=== PATIENT | male | born 1960 | race Caucasian/White ===

== ENCOUNTER 2021-01-24 11:09 | Day surgery (SDC) | payer OTHER ==
[2012-05-29 21:14] VITALS: BP 142/80
[2021-01-24] MEDS ORDERED: LIDOCAINE HCL 2% 100 MG/5 ML IJ ONE (11:10)
[2021-01-24] MEDS ORDERED: Depo-Medrol 40 MG/ML IM ONE (11:10)
[2021-01-24] MEDS ORDERED: Lactated Ringers 1,000 ML IV ONE (12:29)
[2021-01-24] MEDS ORDERED: DIPRIVAN 200 MG/20 ML IV ONE (13:38)
--- NOTE | 2021-01-24 16:35 | XRAY ---
Indication: Bilateral L4-S1 MBB. Intraoperative fluoroscopy provided for 16 seconds. Single digital spot image submitted for interpretation demonstrates posterior needle tips projecting over the expected left and right L4-S1 nerve roots. Correlate with intraoperative findings/report.
--- NOTE | 2021-01-24 16:42 | XRAY ---
16 seconds of fluoroscopy was used in surgery for a bilateral L4-S1 MBB.
== END 2021-01-24 14:25 | disposition home or self-care (01) ==
LOC: SDC-PAIN 11:09
PROVIDERS: ATTEND Psychiatry & Neurology Pain Medicine
DX: M47.816 Spondylosis without myelopathy or radiculopathy, lumbar region (principal); Z79.899 Other long term (current) drug therapy
CPT/HCPCS: 64493; 64494; 72020; 77002; J1030; J2704

== ENCOUNTER 2021-06-06 09:37 | Day surgery (SDC) | payer OTHER ==
[2012-05-29 21:14] VITALS: BP 142/80
[2021-06-06] MEDS ORDERED: Depo-Medrol 40 MG/ML IM ONE (09:38)
[2021-06-06] MEDS ORDERED: BUPIVACAINE 0.5% VIAL IJ ONE (09:38)
[2021-06-06] MEDS ORDERED: DIPRIVAN 200 MG/20 ML IV ONE (12:09)
[2021-06-06] MEDS ORDERED: Lactated Ringers 1,000 ML IV ONE (13:36)
--- NOTE | 2021-06-06 13:46 | XRAY ---
Indication: Bilateral L4-S1 MBB. Intraoperative fluoroscopy provided for 25 seconds. Single digital spot image submitted for interpretation demonstrates posterior needle tips projecting over the expected left and right L4-S1 nerve roots. Correlate with intraoperative findings/report.
--- NOTE | 2021-06-06 14:22 | XRAY ---
25 seconds of fluoroscopy was used in surgery for a bilateral L4-S1 MBB.
== END 2021-06-06 12:37 | disposition home or self-care (01) ==
LOC: SDC-PAIN 09:37
PROVIDERS: ATTEND Psychiatry & Neurology Pain Medicine
DX: M47.816 Spondylosis without myelopathy or radiculopathy, lumbar region (principal); Z79.899 Other long term (current) drug therapy
CPT/HCPCS: 64493; 64494; 72020; 77002; J1030; J2704

== ENCOUNTER 2021-07-11 09:33 | Day surgery (SDC) | payer OTHER ==
[2012-05-29 21:14] VITALS: BP 142/80
[2021-07-11] MEDS ORDERED: Xylocaine 1% Vial 30 ML PF IJ ONE (09:34)
[2021-07-11] MEDS ORDERED: Depo-Medrol 40 MG/ML IM ONE (09:34)
[2021-07-11] MEDS ORDERED: BUPIVACAINE 0.5% VIAL IJ ONE (09:34)
[2021-07-11] MEDS ORDERED: DIPRIVAN 200 MG/20 ML IV ONE (11:02)
[2021-07-11] MEDS ORDERED: Lactated Ringers 1,000 ML IV ONE (12:18)
--- NOTE | 2021-07-11 12:22 | XRAY ---
Indication: Left L4-S1 RFA. Intraoperative fluoroscopy provided for 37 seconds. 3 digital spot image submitted for interpretation demonstrates posterior needle tips projecting over the expected left L4-S1 nerve roots. Correlate with intraoperative findings/report.
--- NOTE | 2021-07-11 15:03 | XRAY ---
37 seconds fluoroscopy time in surgery for left L4-S1 RFA.
== END 2021-07-11 11:35 | disposition home or self-care (01) ==
LOC: SDC-PAIN 09:33
PROVIDERS: ATTEND Psychiatry & Neurology Pain Medicine
DX: M47.816 Spondylosis without myelopathy or radiculopathy, lumbar region (principal); Z79.899 Other long term (current) drug therapy
CPT/HCPCS: 64635; 64636; 72100; 77002; J1030; J2001; J2704

== ENCOUNTER 2021-07-18 09:45 | Day surgery (SDC) | payer OTHER ==
[2012-05-29 21:14] VITALS: BP 142/80
[2021-07-18] MEDS ORDERED: BUPIVACAINE 0.5% VIAL IJ ONE (09:46)
[2021-07-18] MEDS ORDERED: Depo-Medrol 40 MG/ML IM ONE (09:46)
[2021-07-18] MEDS ORDERED: Xylocaine 1% Vial 30 ML PF IJ ONE (09:46)
[2021-07-18] MEDS ORDERED: DIPRIVAN 200 MG/20 ML IV ONE (11:49)
[2021-07-18] MEDS ORDERED: Lactated Ringers 1,000 ML IV ONE (12:15)
--- NOTE | 2021-07-18 13:02 | XRAY ---
Indication: Right L4-S1 RFA. Intraoperative fluoroscopy provided for 24 seconds. 3 digital spot images submitted for interpretation demonstrate posterior needle tips projecting over the expected right L4-S1 nerve roots. Correlate with intraoperative findings/report.
--- NOTE | 2021-07-18 13:10 | XRAY ---
24 seconds of fluoroscopy was used in surgery for a right L4-S1 RFA.
== END 2021-07-18 12:17 | disposition home or self-care (01) ==
LOC: SDC-PAIN 09:45
PROVIDERS: ATTEND Psychiatry & Neurology Pain Medicine
DX: M47.816 Spondylosis without myelopathy or radiculopathy, lumbar region (principal); Z79.899 Other long term (current) drug therapy
CPT/HCPCS: 64635; 64636; 72100; 77002; J1030; J2001; J2704

== ENCOUNTER 2022-11-26 21:08 | Emergency (ER) | payer OTHER ==
[2022-11-26 21:59] VITALS: O2SAT 96
[2022-11-26] MEDS ORDERED: Sodium Chloride 0.9% 1000 ML 1,000 ML IV STA (22:06)
[2022-11-26] MEDS ORDERED: MORPHINE SULFATE 4 MG INJ IV ONE (22:06)
[2022-11-26] MEDS ORDERED: Zofran 4 MG/2 ML VIAL IV ONE (22:06)
--- NOTE | 2022-11-26 22:13 | ERPHSYRPT ---
- History of Present Illness Time Seen by Provider: 11/26/22 21:09 Historian: patient Exam Limitations: no limitations Patient Subjective Stated Complaint: pt states "My R side of back started hurting a couple weeks ago but this afternoon this pain started radiating to my R side of my groin." Triage Nursing Assessment: pt ambulatory to bed by self, a&ox3, skin pwd, pt c/o R sided lower back pain x3 weeks, pt has chronic back pain, pain started radiated to R side of groin this afternoon, afebrile, urine clear and yellow Physician History: 62 years old male presented in the ER with chief complaint of right lower back pain moderate to severe sharp, radiating to the right groin, aggravated with palpation movements and no significant relieving factors. Has been taking [id number] pain medication with no significant relief. Reports increased urinary frequency and burning sensation but no hematuria. No fever or chills reported. Denies any scrotal swelling. Timing/Duration: week(s) (3), intermittent, gradual onset, worse Activities at Onset: rest Quality: sharpness Abdominal Pain Onset Location: flank Pain Radiation: back Severity of Pain-Max: moderate Severity of Pain-Current: moderate Modifying Factors: Worsens With: movement, palpation Associated Symptoms: nausea Allergies/Adverse Reactions: Penicillins Allergy (Verified 11/26/22 21:42) Home Medications: Allopurinol 100 mg [Zyloprim 100 mg] 100 mg PO DAILY 12/29/15 [History] Atorvastatin Calcium 10 mg PO DAILY 12/29/15 [History] Famotidine 40 mg PO DAILY 12/29/15 [History] Omeprazole [Prilosec] 40 mg PO DAILY 12/29/15 [History] Zolpidem Tartrate [Ambien] 5 g PO DAILY 12/29/15 [History] Hx Tetanus, Diphtheria Vaccination/Date Given: No Hx Influenza Vaccination/Date Given: Yes Hx Pneumococcal Vaccination/Date Given: No Immunizations Up to Date: Yes Travel Risk - International Travel Have you traveled outside of the country in past 3 weeks: No - Coronavirus Screening Are you exhibiting any of the following symptoms?: No Close contact with a COVID-19 positive Pt in past 14-21 Days: No - Vaccine Status Have you recieved a Covid-19 vaccination: No - Review of Systems Constitutional: No Symptoms Eyes: No Symptoms Ears, Nose, & Throat: No Symptoms Respiratory: No Symptoms Cardiac: No Symptoms Abdominal/Gastrointestinal: Abdominal Pain, Nausea Genitourinary Symptoms: Frequency Musculoskeletal: Back Pain Skin: No Symptoms Neurological: No Symptoms Hematologic/Lymphatic: No Symptoms Immunological/Allergic: No Symptoms - Past Medical History Pertinent Past Medical History: Yes Neurological History: Migraines, Peripheral Neuropathy ENT History: Other Cardiac History: High Cholesterol, Hypertension Respiratory History: Sleep Apnea Endocrine Medical History: No Pertinent History Musculoskeletal History: Osteoarthritis GI Medical History: GERD History: No Pertinent History Male Reproductive Disorders: No Pertinent History Other Medical History: PAST KNEE PAIN, BACK PAIN, eye floater - Past Surgical History Past Surgical History: Yes Gastrointestinal: Cholecystectomy Genitourinary: Other Other Surgical History: RIGHT KNEE REPAIR, CARPAL TUNNEL BILATERAL WRIST,TONSILS, kidney stone removal - Social History Smoking Status: Former smoker Exposure to second hand smoke: No Drug Use: none Patient Lives Alone: No - Nursing Vital Signs Nursing Vital Signs: Initial Vital Signs Temperature 97.6 F 11/26/22 21:50 Pulse Rate 60 11/26/22 21:50 Respiratory Rate 18 11/26/22 21:50 Blood Pressure 116/68 11/26/22 21:50 O2 Sat by Pulse Oximetry 96 11/26/22 21:50 Pain Scale Pain Intensity 2 - Physical Exam General Appearance: no apparent distress, alert Eye Exam: PERRL/EOMI Ears, Nose, Throat Exam: normal ENT inspection Neck Exam: normal inspection, supple, full range of motion Respiratory Exam: normal breath sounds, lungs clear Cardiovascular Exam: regular rate/rhythm, normal heart sounds Gastrointestinal/Abdomen Exam: soft, normal bowel sounds, tenderness (Mild tenderness right lower quadrant), other (Tenderness right lower sacroiliac area/flank) Back Exam: normal inspection, normal range of motion, No vertebral tenderness (No midline tenderness) Extremity Exam: normal inspection, normal range of motion Neurologic Exam: alert, oriented x 3, cooperative Skin Exam: normal color SpO2 Interpretation: normal SpO2: 96 O2 Delivery: Room Air Ordered Tests: Active Orders 24 hr Category Date Time Status IV Insertion STAT Care 11/26/22 22:06 Active NPO (ED) STAT Care 11/26/22 22:06 Active ABDOMEN AND PELVIS W/0 CONTRAS [CT] Stat Exams 11/26/22 22:07 Taken CBC W DIFF Stat Lab 11/26/22 22:39 Completed CMP Stat Lab 11/26/22 22:39 Completed LIPASE Stat Lab 11/26/22 22:39 Completed UA W/RFX UR CULTURE Stat Lab 11/26/22 22:39 Completed Medication Summary Discontinued Medications Generic Name Dose Route Start Last Admin Trade Name Nirali PRN Reason Stop Dose Admin Sodium Chloride 1,000 mls @ 999 mls/hr 11/26/22 22:06 11/26/22 23:58 Sodium Chloride 0.9% 1000 Ml IV 11/26/22 23:06 Infused .Q1H1M STA Infusion Sodium Chloride Confirm 11/26/22 22:38 Sodium Chloride 0.9% 1000 Ml Administered 11/26/22 22:39 Dose 1,000 mls @ ud .ROUTE .STK-MED ONE Morphine Sulfate 4 mg 11/26/22 22:06 11/26/22 22:44 Morphine Sulfate 4 Mg/Ml Injection IV 11/26/22 22:07 4 mg STAT ONE Administration Morphine Sulfate Confirm 11/26/22 22:38 Morphine Sulfate 4 Mg/Ml Injection Administered 11/26/22 22:39 Dose 4 mg .ROUTE .STK-MED ONE Ondansetron HCl 4 mg 11/26/22 22:06 11/26/22 22:45 Ondansetron Hcl 4 Mg/2 Ml Vial IV 11/26/22 22:07 4 mg STAT ONE Administration Ondansetron HCl Confirm 11/26/22 22:38 Ondansetron Hcl 4 Mg/2 Ml Vial Administered 11/26/22 22:39 Dose 4 mg .ROUTE .STK-MED ONE Lab/Rad Data: Laboratory Result Diagrams 11/26/22 22:39 11/26/22 22:39 Laboratory Results 11/26/22 11/26/22 11/26/22 Range/Units 22:39 22:39 22:39 WBC 5.5 (4.0-10.5) x10^3/uL RBC 4.93 (4.1-5.6) x10^6/uL Hgb 15.0 (12.5-18.0) g/dL Hct 45.4 (42-50) % MCV 92.1 (78-100) fL MCH 30.4 (26-32) pg MCHC 33.0 (32-36) g/dL RDW 12.9 (11.5-14.0) % Plt Count 201 (150-450) x10^3/uL MPV 10.8 (7.5-11.0) fL Gran % 67.6 H (36.0-66.0) % Immature Gran % (Auto) 0.5 H (0.00-0.4) % Nucleat RBC Rel Count 0.0 (0.00-0.1) % Eos # (Auto) 0.21 (0-0.5) x10^3/uL Immature Gran # (Auto) 0.03 (0.00-0.03) x10^3u/L Absolute Lymphs (auto) 0.98 L (1.0-4.6) x10^3/uL Absolute Monos (auto) 0.51 (0.0-1.3) x10^3/uL Absolute Nucleated RBC 0.00 (0.00-0.01) x10^3u/L Lymphocytes % 17.9 L (24.0-44.0) % Monocytes % 9.3 (0.0-12.0) % Eosinophils % 3.8 (0.00-5.0) % Basophils % 0.9 (0.0-0.4) % Absolute Granulocytes 3.70 (1.4-6.9) x10^3/uL Basophils # 0.05 (0-0.4) x10^3/uL Sodium 137 (137-145) mmol/L Potassium 4.2 (3.5-5.1) mmol/L Chloride 102 (98-107) mmol/L Carbon Dioxide 29 (22-30) mmol/L Anion Gap 10.3 (5-15) MEQ/L BUN 22 H (9-20) mg/dL Creatinine 0.95 (0.66-1.25) mg/dL Estimated GFR > 60.0 ML/MIN Glucose 101 (74-106) mg/dL Calcium 8.9 (8.4-10.2) mg/dL Total Bilirubin 0.60 (0.2-1.3) mg/dL AST 37 (17-59) U/L ALT 32 (0-50) U/L Alkaline Phosphatase 42 (38-126) U/L Serum Total Protein 7.1 (6.3-8.2) g/dL Albumin 4.1 (3.5-5.0) g/dL Lipase 38 (23-300) U/L Urine Color Yellow (Yellow) Urine Appearance Clear (Clear) Urine pH 7.0 (4.6-8.0) Ur Specific [place] >=1.030 A (1.005-1.030) Urine Protein Negative (Negative) Urine Glucose (UA) Negative (Negative) mg/dL Urine Ketones Negative (Negative) Urine Blood Negative (Negative) Urine Nitrite Negative (Negative) Urine Bilirubin Negative (Negative) Urine Urobilinogen 1.0 A (0.2) mg/dL Ur Leukocyte Esterase Negative (Negative) U Hyaline Cast (Auto) NONE SEEN (0-2) /LPF Urine Microscopic RBC 0-2 (0-5) /HPF Urine Microscopic WBC 0-2 (0-5) /HPF Ur Epithelial Cells None Seen (None Seen) /HPF Urine Bacteria None Seen (None Seen) /HPF Urine Culture Reflexed NO (NO) - Progress Progress: improved Progress Note: 11/26/22 22:13 62 years old male presented in the ER with chief complaint of right lower back pain moderate to severe sharp, radiating to the right groin, aggravated with palpation movements and no significant relieving factors. Has been taking [id number] pain medication with no significant relief. Reports increased urinary frequency and burning sensation but no hematuria. No fever or chills reported. Denies any scrotal swelling. Patient has a history of chronic back pain which is usually different than this kind of back pain. Its not in midline but more in the right lower quadrant. 11/26/22 23:56 Patient is feeling better on reevaluation after pain medication. Normal white count, unremarkable chemistries and no UTI. CT abdomen pelvis is negative for ureteral lithiasis. Patient has a small left-sided kidney stone. Patient is not hurting in the left side at all. His pain is probably musculoskeletal. Recommended taking Tylenol/ibuprofen and outpatient follow-up. Discussed signs symptoms of worsening needing return to ER which he seems understanding. Stable for discharge. Counseled pt/family regarding: lab results, diagnosis, need for follow-up, rad results Medical Desision Making - Diagnostic Testing Diagnostic test were ordered, analyzed, and reviewed by me: Yes Radiological Interpretation: Reviewed by me - Departure Departure Disposition: Home Clinical Impression: Acute right flank pain, Low back strain Condition: Stable Critical Care Time: No Referrals: SCOTT DAS MD [Primary Care Provider] - Follow up with PCP 1 day Instructions: Flank Pain Additional Instructions: Take Tylenol/ibuprofen as needed. Follow-up with primary care for reevaluation. Return to ER for worsening/intractable pain/fever chills/difficulty urination etc. Prescriptions: Ibuprofen 600 mg PO Q6HPRN PRN 10 Days #20 tablet PRN Reason: Pain Cyclobenzaprine HCl 10 mg [Flexeril 10 MG] 10 mg PO TID #20 tablet
[2022-11-26] MEDS ORDERED: Zofran 4 MG/2 ML VIAL ONE (22:38)
[2022-11-26] MEDS ORDERED: MORPHINE SULFATE 4 MG INJ ONE (22:38)
[2022-11-26] MEDS ORDERED: Sodium Chloride 0.9% 1000 ML 1,000 ML ONE (22:38)
[2022-11-26 22:54] LABS: BASOPHIL % 0.9 % (0.0-0.4); Basophil (Absolute #) 0.05 x10^3/uL (0-0.4); Eosinophil % 3.8 % (0.00-5.0); Eosinophil (Absolute #) 0.21 x10^3/uL (0-0.5); Hematocrit 45.4 % (42-50); IMMATURE GRAN # 0.03 x10^3u/L (0.00-0.03); IMMATURE GRAN % 0.5 % (0.00-0.4); Lymphocyte (Absolute #) 0.98 x10^3/uL (1.0-4.6); Lymphocytes % 17.9 % (24.0-44.0); Mean Cell Volume 92.1 fL (78-100); Mean Corpuscular Hemoglobin 30.4 pg (26-32); Mean Platelet Volume 10.8 fL (7.5-11.0); Monocyte (Absolute #) 0.51 x10^3/uL (0.0-1.3); Monocytes % 9.3 % (0.0-12.0); Neutrophil % 67.6 % (36.0-66.0); Platelet Count 201 x10^3/uL (150-450); Red Blood Count 4.93 x10^6/uL (4.1-5.6); Red Cell Distribution Width 12.9 % (11.5-14.0); White Blood Count 5.5 x10^3/uL (4.0-10.5)
[2022-11-26 23:00] LABS: Appearance Clear (Clear); Bacteria None Seen /HPF (None Seen); Bilirubin Negative (Negative); Blood Negative (Negative); Epithelial Cells None Seen /HPF (None Seen); Glucose, Urine Negative (Negative); Hyaline Casts NONE SEEN /LPF (0-2); Ketones Negative (Negative); Leukocyte Esterase Negative (Negative); Nitrite Negative (Negative); Protein,Urine Dip Negative (Negative); RBC 0-2 /HPF (0-5); Specific Gravity >=1.030 (1.005-1.030); WBC 0-2 /HPF (0-5)
[2022-11-26 23:02] LABS: ADD URINE CULTURE? NO (NO)
[2022-11-26 23:09] LABS: ALBUMIN 4.1 g/dL (3.5-5.0); ALKALINE PHOSPHATASE 42 U/L (38-126); ANION GAP 10.3 MEQ/L (5-15); BLOOD UREA NITROGEN 22 mg/dL (9-20); CHLORIDE 102 mmol/L (98-107); Calcium 8.9 mg/dL (8.4-10.2); Carbon Dioxide 29 mmol/L (22-30); Creatinine 1 0.95 mg/dL (0.66-1.25); EST GLOMERULAR FILTRATION RATE > 60.0 ML/MIN; Glucose 101 mg/dL (74-106); LIPASE 38 U/L (23-300); Potassium 4.2 mmol/L (3.5-5.1); SGOT/AST 37 U/L (17-59); SGPT/ALT 32 U/L (0-50); SODIUM 137 mmol/L (137-145); Total Protein 7.1 g/dL (6.3-8.2)
[2022-11-27] VITALS: BP 114/71; PULSE 55
--- NOTE | 2022-11-27 03:51 | XRAY ---
CLINICAL HISTORY:RIGHT FLANK PAIN COMPARISON:02/10/2016. TECHNIQUE:CT scan of the abdomen and pelvis was performed without IV contrast. Coronal and sagittal reconstructive images were also obtained. FINDINGS: Abdomen: The liver is of average size. No focal or diffuse parenchymal abnormality. The intrahepatic biliary radicals and the bile ducts are normal. The spleen shows multiple tiny calcific foci in its parenchyma, suggestive of old calcified granulomas. The pancreas and adrenal glands are unremarkable. The kidneys are unremarkable. They are normal in size and shape. No calculi on the right. There is 1.2 mm stone on the left kidney. No hydronephrosis in both kidneys in the present study. The gallbladder is surgically removed. The ascending colon, the transverse colon, and the descending colon visualized small bowel loops are unremarkable. There is no evidence of significant enlargement of the mesenteric or retroperitoneal lymph nodes. Pelvis: The urinary bladder is unremarkable. Uncomplicated sigmoid diverticulosis noted. The prostate is prominent in size. No evidence of pelvic lymphadenopathy. The lumbar spine shows degenerative changes with levoscoliosis. Sections of the lower thorax show right diaphragmatic pleural calcification with fibroatelectatic bands in bibasal regions. IMPRESSION: No evidence of urolithiasis in the present study. Tiny left kidney stone. No interval changes compared to the previous study dated 02/10/2016. Electronically Signed by: Harrison Darby MD. (11/26/2022 22:47:43 [employer])
== END 2022-11-27 00:13 | disposition home or self-care (01) ==
LOC: ED 21:08
DX: S39.012A Strain of muscle, fascia and tendon of lower back, initial encounter (principal); R10.9 Unspecified abdominal pain; R30.0 Dysuria; E78.5 Hyperlipidemia, unspecified; I10 Essential (primary) hypertension; Z79.899 Other long term (current) drug therapy; Z28.310 Unvaccinated for COVID-19
CPT/HCPCS: 36000; 36415; 74176; 80053; 81001; 83690; 85025; 96374; 96375; 99284; J2270; J2405

== ENCOUNTER 2023-06-24 18:02 | Emergency (ER) | payer OTHER ==
[2023-06-24 18:22] VITALS: RESP 20; TEMP 97.2; O2SAT 96
--- NOTE | 2023-06-24 18:53 | ERPHSYRPT ---
- History of Present Illness Time Seen by Provider: 06/24/23 18:30 Source: patient Exam Limitations: no limitations Patient Subjective Stated Complaint: Pt states "I have allot of earwax buildup and my left ear has a ton of pressure in it and I am having tinitis and if I do not get something done I am afraid I will go into a panic attack." Triage Nursing Assessment: Pt presented alert and oriented X 3, skin pwd. Pt ambulates with an upright steady gait, able to speak in clear full sentences. PT resting comfortably on the bed. PT left ear has quite a bit of earwax buildup in it. Physician History: Patient is a 63-year-old male presents to our ED for evaluation of pressure and tinnitus left ear. Patient has had similar symptoms in the past which were due to earwax accumulation/. No trauma no fever. No headache. No nausea vomiting or diaphoresis. Symptoms are mild to moderate in intensity. No specific worsening improving factors. at bedside. They voiced no other complaints or concerns at this time. Portions of this note were created with voice recognition technology. There may be grammatical, spelling, punctuation or sound alike errors Timing/Duration: today Severity: moderate Modifying Factors: Improves With: nothing Associated Symptoms: denies symptoms Allergies/Adverse Reactions: amoxicillin Allergy (Unknown, Verified 06/24/23 18:22) Penicillins Allergy (Verified 11/26/22 21:42) Home Medications: Allopurinol 100 mg [Zyloprim 100 mg] 100 mg PO DAILY 12/29/15 [History] Atorvastatin Calcium 10 mg PO DAILY 12/29/15 [History] Famotidine 40 mg PO DAILY 12/29/15 [History] Omeprazole [Prilosec] 40 mg PO DAILY 12/29/15 [History] Zolpidem Tartrate [Ambien] 5 g PO DAILY 12/29/15 [History] Hx Tetanus, Diphtheria Vaccination/Date Given: No Hx Influenza Vaccination/Date Given: Yes Hx Pneumococcal Vaccination/Date Given: No Immunizations Up to Date: Yes Travel Risk - International Travel Have you traveled outside of the country in past 3 weeks: No - Coronavirus Screening Are you exhibiting any of the following symptoms?: No Close contact with a COVID-19 positive Pt in past 14-21 Days: No - Vaccine Status Have you recieved a Covid-19 vaccination: No - Review of Systems Constitutional: No Symptoms, No Fever, No Chills Eyes: No Symptoms Ears, Nose, & Throat: No Symptoms Respiratory: No Symptoms, No Cough, No Dyspnea Cardiac: No Symptoms, No Chest Pain, No Edema, No Syncope Abdominal/Gastrointestinal: No Symptoms, No Abdominal Pain, No Nausea, No Vomiting, No Diarrhea Genitourinary Symptoms: No Symptoms, No Dysuria Musculoskeletal: No Symptoms, No Back Pain, No Neck Pain Skin: No Symptoms, No Rash Neurological: No Symptoms, No Dizziness, No Focal Weakness, No Sensory Changes Psychological: No Symptoms Endocrine: No Symptoms Hematologic/Lymphatic: No Symptoms Immunological/Allergic: No Symptoms All Other Systems: Reviewed and Negative - Past Medical History Pertinent Past Medical History: Yes Neurological History: Migraines, Peripheral Neuropathy ENT History: Other Cardiac History: High Cholesterol, Hypertension Respiratory History: Sleep Apnea Endocrine Medical History: No Pertinent History Musculoskeletal History: Osteoarthritis GI Medical History: GERD History: No Pertinent History Male Reproductive Disorders: No Pertinent History Other Medical History: PAST KNEE PAIN, BACK PAIN, eye floater - Past Surgical History Past Surgical History: Yes Gastrointestinal: Cholecystectomy Genitourinary: Other Other Surgical History: RIGHT KNEE REPAIR, CARPAL TUNNEL BILATERAL WRIST,TONSILS, kidney stone removal - Social History Smoking Status: Former smoker Exposure to second hand smoke: No Drug Use: none Patient Lives Alone: No - Nursing Vital Signs Nursing Vital Signs: Initial Vital Signs Temperature 97.2 F 06/24/23 18:18 Pulse Rate 71 06/24/23 18:18 Respiratory Rate 20 06/24/23 18:18 Blood Pressure 150/80 06/24/23 18:18 O2 Sat by Pulse Oximetry 96 06/24/23 18:18 Pain Scale Pain Intensity 4 - Physical Exam General Appearance: no apparent distress, alert Eye Exam: PERRL/EOMI, eyes nml inspection Ears, Nose, Throat Exam: normal ENT inspection, TMs normal, pharynx normal, moist mucous membranes Neck Exam: normal inspection, non-tender, supple, full range of motion Respiratory Exam: normal breath sounds, lungs clear, airway intact, No respiratory distress Cardiovascular Exam: regular rate/rhythm, normal heart sounds, normal peripheral pulses Gastrointestinal/Abdomen Exam: soft, normal bowel sounds, No tenderness, No mass Back Exam: normal inspection, normal range of motion, No CVA tenderness, No vertebral tenderness Extremity Exam: normal inspection, normal range of motion, pelvis stable Neurologic Exam: alert, oriented x 3, cooperative, normal mood/affect, sensation nml, No motor deficits Skin Exam: normal color, warm, dry, No rash Lymphatic Exam: No adenopathy SpO2 Interpretation: normal SpO2: 96 O2 Delivery: Room Air - Course Nursing assessment & vital signs reviewed: Yes - Progress Progress: improved Progress Note: Ear was irrigated. A very large chunk of wax was irrigated out. Patient's ear completely cleaned at this point. Patient feels significantly better and is now ready for discharge. No indication for further workup. Patient voices no other complaints or concerns at this time. Portions of this note were created with voice recognition technology. There may be grammatical, spelling, punctuation or sound alike errors Complexity problem addressed is low acute uncomplicated Complexity of data reviewed and analyzed is none. No specialized test ordered. Diagnosis made based on history and physical. Risk complication and or risk morbidity/mortality patient management is low Vital stable. Time spent to discharge patient is approximately 10 minutes. Plan of care established for shared decision making. No social determinants of health present impede follow-up 06/24/23 19:00 Counseled pt/family regarding: diagnosis, need for follow-up - Departure Departure Disposition: Home Clinical Impression: Cerumen impaction Condition: Stable Critical Care Time: No Referrals: SCOTT DAS MD [Primary Care Provider] - Follow up/PCP as directed Additional Instructions: Discharge/Care Plan ELVA FIELDS was seen on 06/24/23 in the Emergency Room. The patient was counseled regarding Diagnosis,Lab results, Imaging studies, need for follow up and when to return to the Emergency Room. Prescriptions given: Discharge Note I have spoken with the patient and/or caregivers. I have explained the patient's condition, diagnosis and treatment plan based on the information available to me at this time. I have answered the patient's and/or caregiver's questions and addressed any concerns. The patient and/or caregivers have as good understanding of the patient's diagnosis, condition and treatment plan as can be expected at this point. The vital signs have been stable. The patient's condition is stable and appropriate for discharge from the emergency department. The patient will pursue further outpatient evaluation with the primary care physician or other designated or consulting physician as outlined in the disch arge instructions. The patient and/or caregivers are agreeable to this plan of care and follow-up instructions have been explained in detail. The patient and/or caregivers have received these instruction. The patient/and or caregivers are aware that any significant change in condition or worsening of symptoms should prompt an immediate return to this or the closest emergency department or call 911.
[2023-06-24 19:16] VITALS: BP 162/88; PULSE 74
== END 2023-06-24 19:15 | disposition home or self-care (01) ==
LOC: ED 18:02
DX: H61.22 Impacted cerumen, left ear (principal); E78.5 Hyperlipidemia, unspecified; I10 Essential (primary) hypertension; Z79.899 Other long term (current) drug therapy; Z28.310 Unvaccinated for COVID-19
CPT/HCPCS: 99281

== ENCOUNTER 2023-09-17 06:45 | Day surgery (SDC) | payer OTHER ==
[2012-05-29 21:14] VITALS: BP 142/80
[2023-09-17] MEDS ORDERED: Depo-Medrol 40 MG/ML IM ONE (06:46)
[2023-09-17] MEDS ORDERED: BUPIVACAINE 0.5% VIAL IJ ONE (06:46)
[2023-09-17] MEDS ORDERED: LIDOCAINE HCL 1% 50 MG/5 ML VL PF IJ ONE (06:46)
[2023-09-17] MEDS ORDERED: DIPRIVAN 200 MG/20 ML IV ONE (08:09)
[2023-09-17] MEDS ORDERED: Lactated Ringers 1,000 ML IV ONE (09:20)
--- NOTE | 2023-09-17 10:28 | XRAY ---
Indication: Right L4-S1 RFA. Intraoperative fluoroscopy provided for 33 seconds. 4 digital spot image submitted for interpretation demonstrates posterior needle tips projecting over the expected right L4-S1 nerve roots. Correlate with intraoperative findings/report.
--- NOTE | 2023-09-17 12:38 | XRAY ---
33 seconds of fluoroscopy was used in surgery for a right L4-S1 RFA.
== END 2023-09-17 08:45 | disposition home or self-care (01) ==
LOC: SDC-PAIN 06:45
PROVIDERS: ATTEND Psychiatry & Neurology Pain Medicine
DX: M47.816 Spondylosis without myelopathy or radiculopathy, lumbar region (principal)
CPT/HCPCS: 64635; 64636; 72100; 77002; J1010; J2001; J2704

== ENCOUNTER 2023-10-01 07:21 | Day surgery (SDC) | payer OTHER ==
[2012-05-29 21:14] VITALS: BP 142/80
[2023-10-01] MEDS ORDERED: Depo-Medrol 40 MG/ML IM ONE (07:22)
[2023-10-01] MEDS ORDERED: XYLOCAINE-MPF 1% 5ML SDV IJ ONE (07:22)
[2023-10-01] MEDS ORDERED: BUPIVACAINE 0.5% VIAL IJ ONE (07:22)
[2023-10-01] MEDS ORDERED: Lactated Ringers 1,000 ML IV ONE (08:40)
[2023-10-01] MEDS ORDERED: DIPRIVAN 200 MG/20 ML IV ONE (09:02)
--- NOTE | 2023-10-01 11:39 | XRAY ---
Indication: Left L4-S1 RFA. Intraoperative fluoroscopy provided for 21 seconds. 3 digital spot image submitted for interpretation demonstrates posterior needle tips projecting over the expected left L4-S1 nerve roots. Correlate with intraoperative findings/report.
--- NOTE | 2023-10-01 12:47 | XRAY ---
21 seconds of fluoroscopy was used in surgery for a left L4-S1 RFA.
== END 2023-10-01 09:35 | disposition home or self-care (01) ==
LOC: SDC-PAIN 07:21
PROVIDERS: ATTEND Psychiatry & Neurology Pain Medicine
DX: M47.816 Spondylosis without myelopathy or radiculopathy, lumbar region (principal)
CPT/HCPCS: 64635; 64636; 72100; 77002; J1010; J2704

== ENCOUNTER 2024-08-02 06:50 | Day surgery (SDC) | payer OTHER ==
[~2024-08-02 06:50] MED LIST: Lactated Ringers 1,000 ML IV ONE; VANCOCIN INJECTION IV ONE
[2024-08-02] MEDS: Lactated Ringers 1,000 ML IV SCH (07:17)
[2024-08-02] MEDS: celeBREX 100 MG PO ONE (07:17)
[2024-08-02] MEDS: TRANEXAMIC 1,000 MG/100ML-NACL 1,000 MG/100 ML PIGGYBACK IV ONE (07:17)
[2024-08-02] MEDS: CLINDAMYCIN-D5W 900 MG/50 ML*** 900 MG/50 ML BAG IV ONE (07:17)
[2024-08-02] MEDS: TYLENOL EXTRA STRENGTH 500 MG PO ONE (07:17)
[2024-08-02] MEDS: Decadron 4 MG PO ONE (07:18)
[2024-08-02] MEDS: NEURONTIN PO ONE (07:18)
[2024-08-02] MEDS ORDERED: VANCOCIN INJECTION IV ONE (09:00)
[2024-08-02] MEDS ORDERED: Naropin 0.5% 30 ML VIAL ONE (09:09)
[2024-08-02] MEDS ORDERED: Versed 2 MG/2 ML Injection ONE ×2 (09:10→11:11)
[2024-08-02] MEDS ORDERED: SUBLIMAZE 100 MCG/2 ML ONE (10:54)
[2024-08-02] MEDS ORDERED: propofoL IV ONE ×4 (10:55→12:52)
[2024-08-02] MEDS ORDERED: Astramorph-Pf 5 MG/10 ML ONE (11:07)
--- NOTE | 2024-08-02 14:19 | XRAY ---
Indication: Total knee replacement. Comparison: None AP/crosstable lateral left knee demonstrates osteopenia with intact total knee arthroplasty. Elsewhere postoperative soft tissue swelling, soft tissue emphysema, and effusion. No other bony, articular, or soft tissue abnormalities.
[2024-08-02] MEDS ORDERED: ULTRAM 50 MG PO PRN (15:41)
[2024-08-02] MEDS ORDERED: Oxy-IR 5 MG PO PRN (15:43)
[2024-08-02] MEDS ORDERED: Hydromorphone 1 mg/ml Injection IV PRN (15:44)
[2024-08-02] MEDS ORDERED: VITAMIN D2 PO SCH (15:45)
[2024-08-02] MEDS ORDERED: CYANOCOBALAMIN 5000 MCG SL SCH (15:45)
[2024-08-02] MEDS ORDERED: CLARITIN 10 MG PO PRN (16:00)
[2024-08-02] MEDS ORDERED: BENADRYL 50 MG/ML IV PRN (16:00)
[2024-08-02] MEDS ORDERED: DEMEROL 50 MG IV PRN (16:00)
[2024-08-02] MEDS ORDERED: Sodium Chloride 0.9% 10 ML FLUSH Syringe IJ PRN (16:00)
[2024-08-02] MEDS ORDERED: Nubain 10 MG/ML IV PRN (16:00)
[2024-08-02] MEDS ORDERED: Zofran 4 MG/2 ML VIAL IV PRN (16:00)
[2024-08-02] MEDS ORDERED: Narcan 0.4 MG/ML IV PRN (16:00)
[2024-08-02] MEDS ORDERED: MORPHINE SULFATE 2 MG INJ IV PRN (16:00)
[2024-08-02] MEDS ORDERED: MEDICATION INTERVENTION MC SCH (16:15)
[2024-08-02] MEDS: Sodium Chloride 0.9% 1000 ML 1,000 ML IV SCH (16:43)
[2024-08-02] MEDS: PERCOCET TABLET 5/325MG PO PRN (20:34)
[2024-08-02] MEDS ORDERED: GABAPENTIN 100 MG PO SCH (22:00)
[2024-08-02] MEDS: Ambien 5 MG Tablet PO SCH (22:17)
[2024-08-02] MEDS: NEURONTIN PO SCH (22:17)
[2024-08-02] MEDS: ZYLOPRIM 100 MG PO SCH (22:17)
[2024-08-02] MEDS: ZOCOR 20MG PO SCH (22:17)
[2024-08-03 05:15] LABS: Hematocrit 41.9 % (40.1-51.0); Hemoglobin 13.6 g/dL (13.7-17.5); Mean Cell Volume 91.7 fL (79.0-92.2); Mean Corpuscular Hemoglobin 29.8 pg (25.7-32.2); Mean Corpuscular Hgb Concent. 32.5 g/dL (32.3-36.5); Mean Platelet Volume 10.7 fL (9.4-12.4); Platelet Count 240 x10^3/uL (163-337); Red Blood Count 4.57 x10^6/uL (4.63-6.08); Red Cell Distribution Width 12.9 % (11.6-14.4); White Blood Count 12.6 x10^3/uL (4.23-9.07)
[2024-08-03 07:15] VITALS: BP 119/61; PULSE 78; RESP 16; TEMP 97.8; O2SAT 93
[2024-08-03] MEDS: Vitamin B-12 500 MCG PO SCH (09:35)
[2024-08-03] MEDS: FOLATE 1 MG PO SCH (09:36)
[2024-08-03] MEDS: MAG-OX 400 PO SCH (09:37)
[2024-08-03] MEDS: THERAGRAN MULTIVITAMIN PO SCH (09:38)
[2024-08-03] MEDS: Protonix 40MG Tablet PO SCH (09:38)
[2024-08-03] MEDS: Zinc Gluconate 50 MG PO SCH (09:38)
[2024-08-03] MEDS ORDERED: NON-FORMULARY ITEM (Atorvastatin Calcium [Atorvastatin Calcium] 10 MG Tablet) PO SCH (10:00)
[2024-08-03] MEDS ORDERED: ZINC AMINO ACID CHELATE PO SCH (10:00)
[2024-08-03] MEDS ORDERED: NON-FORMULARY ITEM (Omeprazole [Prilosec] 40 MG Cap) PO SCH (10:00)
[2024-08-03] MEDS ORDERED: NON-FORMULARY ITEM (Magnesium Oxide [Magnesium] 250 MG Tablet) PO SCH (10:00)
[2024-08-03] MEDS ORDERED: NON-FORMULARY ITEM (Cyanocobalamin (Vitamin B-12) [Vitamin B-12] 1,000 MCG Capsule) PO SCH (10:00)
[2024-08-03] MEDS ORDERED: NON-FORMULARY ITEM (Multivitamin [Multivitamin] 1 EACH Tablet) PO SCH (10:00)
[2024-08-03] MEDS ORDERED: HOLD NARCOTIC ANALGESICS AND SEDATIVES X24 HR MC SCH (10:00)
[2024-08-03] MEDS ORDERED: Hydromorphone 1 mg/ml Injection IV PRN (15:49)
[2024-08-03] MEDS ORDERED: Oxy-IR 5 MG PO PRN (15:49)
[2024-08-03] MEDS ORDERED: ULTRAM 50 MG PO PRN (15:50)
--- NOTE | 2024-08-04 08:17 | OP ---
SURGERY DATE/TIME: 08/02/2024 [id number] PREOPERATIVE DIAGNOSIS: Osteoarthritis, left knee. POSTOPERATIVE DIAGNOSIS: Osteoarthritis, left knee. PROCEDURE: Left total knee replacement arthroplasty utilizing the [employer] instrumentation with a size 12 femoral component press fit, a size G tibial component cemented with an 11 mm polyethylene tibial bearing tray, a 25 mm x 8 mm single peg poly patella cemented. SURGEON: Ean Soto, II, DO ANESTHESIA: Spinal with block for postop pain control. DESCRIPTION OF PROCEDURE AND FINDINGS: The patient was identified. Informed consent was obtained. The patient was then to the operative suite after the block had been administered in the preop holding area. The spinal anesthetic was administered and then the patient was placed into a supine position on the operating table. The tourniquet was placed high on the left thigh. The left lower extremity was prepped and draped in the usual sterile fashion. A standard time-out was taken. Following this, the foot was placed into the foot holding boot. The leg was exsanguinated and the tourniquet was elevated to 350 mmHg. At this point, with the knee in a flexed position, a standard midline incision was accomplished. Skin and subcutaneous tissue were incised. At this point then, a standard medial parapatellar incision was accomplished with a fresh #10 blade. Upon entering the joint, a copious amount of grade 1 synovial fluid was encountered. It was noted to be hard eburnated bone on the lateral femoral condyle and tibial plateau as well as both the medial and lateral facets of the patella. Significant bending of the articular cartilage was noted in the medial femoral condyle and tibial plateau. At this point, portion of the infrapatellar fat pad, medial and lateral menisci, and anterior cruciate ligament were all excised in order to gain better visualization. Z retractors were positioned medially and laterally. At this point, the femoral guide was placed. The 2 drill holes were made distally for the 4-in-1 cutting block and anteriorly for the distal cutting block. The distal cutting block was applied and distal femoral cut was accomplished. Wafers of bone were removed. At this point then, a 4-in-1 cutting block was applied and held in position with pins. The anterior, posterior, and chamfer cuts were then made. The guide was removed and the wafers of bone were removed. At this point, a posterior retractor was positioned. Any remaining menisci was then excised. At this point then, the tibial guide was placed and the appropriate pins were placed into the tibia. The tibial cutting block was applied and a proximal wafer of tibia was resected. At this point, the trial tibial component was then applied and held with its pins. The femoral trial component was impacted into position and an 11 mm trial polyethylene tray was deemed to be the appropriate size to give excellent soft tissue balance in all planes of motion from full extension to greater than 135 degrees of flexion. The drill holes were made in the femur for the permanent component. Rotation of the tibial component was noted to be excellent. At this point then, attention was turned to the patella. Osteophytes were removed from the patella and the patellar button was then milled. Trial reduction again showed excellent tracking of the patella and, at this point, the patellar component was removed as was the trial tibial base, tibial poly, and the femur. The cruciate stem was cut in the tibial trial and all trial instrumentation was removed. The joint was copiously irrigated with a pulsed accounts payable manager while the cement was being vacuum mixed. Cement was then pressed into the into the interstices of the tibia with a cement gun. The tibial component was then cemented into position. Excess cement was removed throughout the curing process. Femoral component was press fit into position. Trial tibial tray was then reinserted and the knee was held in extension during the curing the process. Patellar button was then cemented into position and held with this clamp. Again, excess cement was removed throughout the curing process. Once the cement had fully cured, again the knee was placed through a range of motion. Excellent tracking of the patella was noted. Good soft tissue balance from full extension to full flexion greater than 135 degrees. At this point then, the trial tibial poly was removed. The joint was irrigated and the permanent component was then inserted and snapped into position. The wound was then irrigated and closed with #2 Stratafix, 2-0 Monocryl, and 3-0 Stratafix subcuticular augmented with Dermabond. An Aquacel dressing was applied. The patient was transferred to the bed and taken to the recovery room in satisfactory condition having tolerated the procedure well.
== END 2024-08-03 11:07 | disposition home or self-care (01) ==
LOC: SDC 06:50 → MED SURG 14:15 → SDC 08-03 11:07
PROVIDERS: ATTEND Orthopaedic Surgery
DX: M17.12 Unilateral primary osteoarthritis, left knee (principal)
CPT/HCPCS: 27447; 36415; 73560; 76937; 85027; 94760; 97161; 97530; C1713; C1776; J2250; J2274; J2704; J2795; J3010; J3370; A9270-GY

== ENCOUNTER 2024-08-06 18:53 | Emergency (ER) | payer OTHER ==
--- NOTE | 2024-08-06 19:18 | ERPHSYRPT ---
- History of Present Illness Time Seen by Provider: 08/06/24 19:18 Source: patient, family Exam Limitations: no limitations Physician History: This is a 64-year-old white male patient who arrives by private vehicle accompanied by his spouse with the complaint of left knee and calf swelling and pain. Patient is 4 days out from a left total knee replacement arthroplasty. He has never had a knee replacement before and he is having trouble straightening out his left knee and is having Pain when he attempts to ambulate. He is concerned. Patient has a history of gastroesophageal reflux disease, hypertension, hyperlipidemia and gout. He has no chest pain. He has no coughing. He is not short of breath. He is not on any anticoagulation therapy and states he was not given a prescription or medication for anticoagulation. Method of Injury: other (Postoperative left knee replacement) Occurred: days ago (Increasing in swelling and pain over the last few days postoperatively) Quality: aching, throbbing Severity of Pain-Max: moderate Severity of Pain-Current: moderate Lower Extremities Pain: leg: left (Lower leg), knee: left Modifying Factors: Improves With: movement Associated Symptoms: other (Hurts to straighten out the knee, standing, walking and bending) Allergies/Adverse Reactions: amoxicillin Allergy (Unknown, Verified 08/06/24 20:15) Penicillins Allergy (Verified 08/06/24 20:15) Home Medications: Allopurinol 100 mg [Zyloprim 100 mg] 100 mg PO BID 12/29/15 [History] Atorvastatin Calcium 20 mg PO HS 12/29/15 [History] Omeprazole [Prilosec] 40 mg PO DAILY 12/29/15 [History] Zolpidem Tartrate [Ambien] 10 mg PO HS 12/29/15 [History] Folic Acid 1 mg [Folate 1 mg] 1 mg PO DAILY 07/21/24 [History] Gabapentin [Gabarone] 1,200 mg PO HS 07/21/24 [History] Cyanocobalamin (Vitamin B-12) [Vitamin B-12] 1,000 mcg PO DAILY 08/02/24 [History] Magnesium Oxide [Magnesium] 250 mg PO HS 08/02/24 [History] Multivitamin 1 tab PO DAILY 08/02/24 [History] Potassium Citrate [Potassium] 99 mg PO HS 08/02/24 [History] Zinc Amino Acid Chelate [Zinc] 50 mg PO DAILY 08/02/24 [History] Cholecalciferol (Vitamin D3) [Vitamin D3] 1 tab PO DAILY 08/06/24 [History] Hx Tetanus, Diphtheria Vaccination/Date Given: No Hx Influenza Vaccination/Date Given: Yes Hx Pneumococcal Vaccination/Date Given: No Travel Risk - International Travel Have you traveled outside of the country in past 3 weeks: No - Emerging Infectious Disease Are you exhibiting symptoms associated with any current EIDs: No - Review of Systems Constitutional: No Symptoms Eyes: No Symptoms Ears, Nose, & Throat: No Symptoms Respiratory: No Symptoms Cardiac: No Symptoms Abdominal/Gastrointestinal: No Symptoms Genitourinary Symptoms: No Symptoms Musculoskeletal: Other (Left knee and lower leg/calf pain swelling and ecchymosis) Skin: Other (Ecchymosis of left lower extremitypostoperative) Neurological: No Symptoms Psychological: No Symptoms Endocrine: No Symptoms Hematologic/Lymphatic: No Symptoms Immunological/Allergic: No Symptoms All Other Systems: Reviewed and Negative - Past Medical History Neurological History: No Pertinent History Cardiac History: Hypertension Respiratory History: Sleep Apnea Endocrine Medical History: Other Musculoskeletal History: Osteoarthritis - Past Surgical History Neuro Surgical History: No Pertinent History Cardiac: No Pertinent History Respiratory: No Pertinent History Musculoskeletal: Other Male Surgical History: No Pertinent History - Social History Smoking Status: Never smoker - Nursing Vital Signs Nursing Vital Signs: Initial Vital Signs Temperature 99.1 F 08/06/24 20:06 Pulse Rate 82 08/06/24 20:06 Respiratory Rate 20 08/06/24 20:06 Blood Pressure 132/73 08/06/24 20:06 O2 Sat by Pulse Oximetry 94 L 08/06/24 20:06 Pain Scale Pain Intensity 4 - Physical Exam General Appearance: no apparent distress, alert, anxiety Eyes, Ears, Nose, Throat Exam: normal ENT inspection, moist mucous membranes Neck Exam: normal inspection, non-tender, supple Cardiovascular/Respiratory Exam: chest non-tender, normal breath sounds, regular rate/rhythm, heart sounds normal, no respiratory distress Gastrointestinal/Abdominal Exam: non-tender, soft Back Exam: normal inspection, normal range of motion, No CVA tenderness Hips Exam: bilateral: non-tender, normal inspection, normal range of motion, no evidence of injury Legs Exam: right leg: non-tender, normal inspection, normal range of motion, no evidence of injury, left leg: ecchymosis, joint effusion (Left knee), soft tissue tenderness, swelling Knees Exam: right knee: non-tender, normal inspection, normal range of motion, no evidence of injury, left knee: ecchymosis, joint effusion, pain, soft tissue tenderness, swelling Ankle Exam: right ankle: non-tender, normal inspection, normal range of motion, no evidence of injury, left ankle: ecchymosis, swelling Foot Exam: bilateral foot: non-tender, normal inspection, normal range of motion, no evidence of injury Neuro/Tendon Exam: normal sensation, normal motor functions, normal tendon functions, no evidence tendon injury Mental Status Exam: alert, oriented x 3, cooperative Skin Exam: normal color, warm, dry SpO2 Interpretation: normal O2 Delivery: Room Air - Course Nursing assessment & vital signs reviewed: Yes Ordered Tests: Active Orders 24 hr Category Date Time Status KNEE (3 VIEWS) Stat Exams 08/06/24 20:07 Taken VENOUS UNILAT/LIMITED EXTREMIT [US] Stat Exams 08/06/24 20:08 Ordered CBC W DIFF Stat Lab 08/06/24 20:30 Completed Medication Summary Discontinued Medications Generic Name Dose Route Start Last Admin Trade Name Freq PRN Reason Stop Dose Admin Hydromorphone HCl 1 mg 08/06/24 20:05 08/06/24 20:33 Hydromorphone 1 Mg/1ml Inj IM 08/06/24 20:06 1 mg STAT ONE Administration Hydromorphone HCl Confirm 08/06/24 20:26 Hydromorphone 1 Mg/1ml Inj Administered 08/06/24 20:27 Dose 1 mg .ROUTE .STK-MED ONE Ondansetron HCl 4 mg 08/06/24 20:06 08/06/24 20:33 Zofran 4 Mg/Udtablet Orally Disintegrating PO 08/06/24 20:07 4 mg STAT ONE Administration Ondansetron HCl Confirm 08/06/24 20:26 Zofran 4 Mg/Udtablet Orally Disintegrating Administered 08/06/24 20:27 Dose 4 mg .ROUTE .STK-MED ONE Lab/Rad Data: Laboratory Result Diagrams 08/06/24 20:30 Laboratory Results 08/06/24 Range/Units 20:30 WBC 6.9 (4.23-9.07) x10^3/uL RBC 4.17 L (4.63-6.08) x10^6/uL Hgb 12.7 L (13.7-17.5) g/dL Hct 37.7 L (40.1-51.0) % MCV 90.4 (79.0-92.2) fL MCH 30.5 (25.7-32.2) pg MCHC 33.7 (32.3-36.5) g/dL RDW 12.5 (11.6-14.4) % Plt Count 238 (163-337) x10^3/uL MPV 9.7 (9.4-12.4) fL Gran % 79.8 H (34.0-67.9) % Immature Gran % (Auto) 0.3 (0.001-0.429) % Nucleat RBC Rel Count 0.0 (0.00-0.2) % Eos # (Auto) 0.18 (0.04-0.54) x10^3/uL Immature Gran # (Auto) 0.02 (0.001-0.031) x10^3u/L Absolute Lymphs (auto) 0.47 L (1.32-3.57) x10^3/uL Absolute Monos (auto) 0.68 (0.30-0.82) x10^3/uL Absolute Nucleated RBC 0.00 (0.00-0.012) x10^3u/L Lymphocytes % 6.8 L (21.8-53.1) % Monocytes % 9.8 (5.3-12.2) % Eosinophils % 2.6 (0.8-7.0) % Basophils % 0.7 (0.2-1.2) % Absolute Granulocytes 5.51 H (1.78-5.38) x10^3/uL Basophils # 0.05 (0.01-0.08) x10^3/uL - Progress Progress: improved, pain not gone completely Progress Note: 08/06/24 20:18 My medical decision making of the assignment of moderate complexity is based on review of the patient's past medical history, review the patient's medication list, review of the patient's drug allergy list, history of present illness and physical findings on examination. The workup in this patient includes CBC, left lower extremity venous Doppler to evaluate for DVT, x-ray of left knee to evaluate for left knee replacement remaining in the appropriate position. Differential diagnosis includes but is not limited to normal postoperative findings, postoperative DVT, postoperative anemia 08/06/24 21:01 I interpreted the patient's laboratory data results. Based on the laboratory data results there are no acute, emergent medical issue. I interpreted the preliminary report of the x-ray performed on the left knee. There are no acute, emergent fractures or dislocations. The total knee replacement arthroplasty hardware appears to be intact. This is unchanged from the postoperative x-ray performed on 08/02/2024. The radiologist interpreted the final report of the patient's left knee x-ray. He is in agreement with my findings. There are no acute, emergent findings Counseled pt/family regarding: lab results, diagnosis, need for follow-up, rad results Medical Desision Making - Independent Historian Additional History obtained from: Spouse - Diagnostic Testing Diagnostic test were ordered, analyzed, and reviewed by me: Yes Radiological Interpretation: Interpreted by me, Reviewed by me, Teleradiologist Report - Risk of complications Low Risk: Low risk of morbidity from additional dx testing or treatment - Departure Departure Disposition: Home Clinical Impression: Pain and swelling of left knee Condition: Stable Critical Care Time: No Referrals: SCOTT DAS MD [Primary Care Provider] - Follow up/PCP as directed Additional Instructions: Continue your medications as prescribed. Continue following the orthopedic surgeons postoperative instructions. Call the orthopedic surgeons office on 08/09/2024, to make arrangements for follow-up appointment for further evaluation and management
[2024-08-06 20:10] VITALS: TEMP 99.1
[2024-08-06] MEDS ORDERED: ZOFRAN ODT 4 MG ONE (20:26)
[2024-08-06] MEDS ORDERED: Hydromorphone 1 mg/ml Injection ONE (20:26)
[2024-08-06] MEDS: ZOFRAN ODT 4 MG PO ONE (20:33)
[2024-08-06] MEDS: Hydromorphone 1 mg/ml Injection IM ONE (20:33)
[2024-08-06 20:35] LABS: Absolute Neutrophil Ct (ANC) 5.51 x10^3/uL (1.78-5.38); BASOPHIL % 0.7 % (0.2-1.2); Basophil (Absolute #) 0.05 x10^3/uL (0.01-0.08); Eosinophil % 2.6 % (0.8-7.0); Eosinophil (Absolute #) 0.18 x10^3/uL (0.04-0.54); Hematocrit 37.7 % (40.1-51.0); Hemoglobin 12.7 g/dL (13.7-17.5); IMMATURE GRAN # 0.02 x10^3u/L (0.001-0.031); IMMATURE GRAN % 0.3 % (0.001-0.429); Lymphocyte (Absolute #) 0.47 x10^3/uL (1.32-3.57); Lymphocytes % 6.8 % (21.8-53.1); Mean Cell Volume 90.4 fL (79.0-92.2); Mean Corpuscular Hemoglobin 30.5 pg (25.7-32.2); Mean Corpuscular Hgb Concent. 33.7 g/dL (32.3-36.5); Mean Platelet Volume 9.7 fL (9.4-12.4); Monocyte (Absolute #) 0.68 x10^3/uL (0.30-0.82); Monocytes % 9.8 % (5.3-12.2); Neutrophil % 79.8 % (34.0-67.9); Platelet Count 238 x10^3/uL (163-337); Red Blood Count 4.17 x10^6/uL (4.63-6.08); Red Cell Distribution Width 12.5 % (11.6-14.4); White Blood Count 6.9 x10^3/uL (4.23-9.07)
[2024-08-06 21:21] VITALS: BP 136/76; PULSE 78; RESP 18; O2SAT 92
[2024-08-06 21:40] LABS: Slide Review 1 YES
--- NOTE | 2024-08-07 08:32 | XRAY ---
Indication: Postop pain and swelling. Comparison: August 02, 2024 3 view left knee again demonstrates osteopenia, intact total knee arthroplasty, and postoperative soft tissue swelling/emphysema/effusion. No new bony, articular, or soft tissue abnormalities.
--- NOTE | 2024-08-07 08:44 | XRAY ---
Indication: Postop pain and swelling. Two-dimensional sonogram and color Doppler imaging major venous vessels left leg performed. Comparison: None No thrombus seen in the examined deep venous vessels left leg including greater saphenous vein. Veins demonstrate normal compressibility. Venous waveforms are normal with and without augmentation. Impression: Left leg negative for DVT. Comment: Preliminary report was given.
== END 2024-08-06 21:30 | disposition home or self-care (01) ==
LOC: ED 18:53
DX: M25.562 Pain in left knee (principal); M25.462 Effusion, left knee; M79.662 Pain in left lower leg; I10 Essential (primary) hypertension; E78.5 Hyperlipidemia, unspecified; Z79.899 Other long term (current) drug therapy
CPT/HCPCS: 36415; 73562; 85025; 93971; 96372; 99284; 99285; J1171; Q0162